=== PATIENT | female | born 1960 | race African-American/Black ===

== ENCOUNTER 2016-06-10 13:27 | Emergency (ER) | payer SELFPAY ==
[2016-06-10] MEDS ORDERED: ONDANSETRON HCL/PF 4 MG/ 2ML VIAL ONE (14:15)
[2016-06-10] MEDS ORDERED: ONDANSETRON HCL 4 MG TAB.RAPDIS ONE (14:51)
--- NOTE | 2016-06-10 14:55 | ED Physician Documentation ---
Nausea/Vomiting/Diarrhea - HISTORIAN Historian: patient, spouse - HPI Stated Complaint: Abdominal pain, nausea, vomiting, diarrhea, fever, chills Chief Complaint: Nausea,Vomiting,Diarrhea Additional Information: n/e/d onset 1 day ago persistent-still good ua output Onset: days ago (1) Duration: waxing, waning Timing: gradual onset, still present, worse Context: denies: out of country travel, bad food, recent trauma (works w/ patients) Severity: moderate - Associated Symptoms Vomiting: mild Diarrhea: mild Abdominal Pain: cramping, mild, moderate - ROS CONST: none CVS/RESP: denies: chest pain GI/: denies: none MS/SKIN/LYMPH: denies: joint pain, leg swelling, rash NEURO/PSYCH: none - PAST HX Past History: other (htn asthma) Other History: hypertension Surgeries/Procedures: Immunizations: UTD Allergies/Adverse Reactions: Allergies Allergy/AdvReac Type Severity Reaction Status Date / Time No Known Allergies Allergy Verified 06/10/16 14:03 Home Medications: Ambulatory Orders Medication Instructions Recorded Furosemide [Furosemide] 20 mg PO DAILY 12/17/15 Lisinopril [Lisinopril] 20 mg PO DAILY 12/17/15 Meloxicam [Mobic] 15 mg PO PRN PRN 12/17/15 Potassium Chloride [Klor-Con M20] 20 meq PO DAILY 12/17/15 - SOCIAL HX Smoking History: non-smoker Alcohol Use: none Drug Use: none - FAMILY HX Family History: none - VITAL SIGNS Vital Signs: Vital Signs Temp Pulse Resp BP Pulse Ox 100.3 F H 120 H 20 218/94 95 06/10/16 13:55 06/10/16 13:55 06/10/16 13:55 06/10/16 13:55 06/10/16 13:55 - REVIEWED ASSESSMENTS Nursing Assessment Reviewed: Yes Vitals Reviewed: Yes ED Results Lab/Radiology - Orders Orders: ED Orders Category Date Time Status Ondansetron HCl/Pf [Zofran 4 mg/2 ml] Med 06/10/16 14:15 Discontinued 4 mg .ROUTE .STK-MED ONE Nausea Physical Exam - EXAM General Appearance: mild distress, moderate distress EENT: eye inspection normal Neck: normal inspection, thyroid normal, supple Respiratory: no resp distress, chest non-tender, breath sounds normal CVS: reg rate & rhythm (kofjm=104), heart sounds normal, no gallop, JVD present , tachycardia Abdomen: tenderness (genl miild -o mod) Back: non-tender Skin: No: cyanosis, diaphoresis, jaundice Extremities: non-tender, normal range of motion, no evidence of injury Neuro/Psych: oriented X3, motor nml, sensation nml Discharge Clincal Impression: viral gastroenteritis dehydration Home Medications: Ambulatory Orders Furosemide [Furosemide] 20 mg PO DAILY 12/17/15 Lisinopril [Lisinopril] 20 mg PO DAILY 12/17/15 Meloxicam [Mobic] 15 mg PO PRN PRN 12/17/15 Potassium Chloride [Klor-Con M20] 20 meq PO DAILY 12/17/15 Comments: home oral zofran ORT of 2/3 gatoraid 1/3 water small freq amts prog to BRAT diet as tolerated. disc w/pt familyh they elect no lab and no IV due to diff veinopuncture FSBS = 86 Condition: Good Disposition: 01 HOME, SELF-CARE Decision to Admit: NO Decision Time: 15:02
[2016-06-10] MEDS ORDERED: ONDANSETRON HCL 4 MG TAB.RAPDIS PO ONE (15:03)
[2016-06-10 18:54] VITALS: BP 169/66
== END 2016-06-10 14:30 | disposition home or self-care (01) ==
LOC: ED 13:27
DX: K52.9 Noninfective gastroenteritis and colitis, unspecified (principal); E86.0 Dehydration
CPT/HCPCS: 99282; 99283; J2405; A9270; S1016